=== PATIENT | male | born 1960 | race Caucasian/White ===

== ENCOUNTER 2022-08-10 13:59 | Emergency (ER) | payer OTHER, SELFPAY ==
[2022-08-10 14:10] VITALS: BP 152/79; PULSE 73; RESP 16; TEMP 37.3; O2SAT 96
--- NOTE | 2022-08-10 14:21 | ED.HEATRA ---
HPI - Head Injury General Chief complaint: Head Injury Stated complaint: Fall Injury Time Seen by Provider: 08/10/22 14:15 Source: patient Mode of arrival: ambulatory Limitations: no limitations History of Present Illness HPI Narrative: Mr. Ny is a 62-year-old male patient presenting to the clinic today with complaints of a head injury. He reports that he became dizzy when getting up too quickly and fell and hit his head on the carpet. He has a large goose egg with a laceration to the right side of his head. He denies any loss of consciousness or any neck pain. He reports this happened approximately an hour and a half ago. He denies any use of blood thinners. He denies any other injury that occurred during the fall. Reports he has a slight headache rating it a 1 out of 10 currently. History of neuropathy and thinks this is causing his dizziness as he is unable to feel his lower extremities. Related Data Home Medications Medication Instructions Recorded Confirmed pantoprazole 40 mg tablet,delayed 40 mg PO DAILY 08/10/22 08/10/22 release Allergies Allergy/AdvReac Type Severity Reaction Status Date / Time latex Allergy Unknown Rash Verified 08/10/22 14:04 Penicillins Allergy Unknown Rash Verified 08/10/22 14:04 Review of Systems Review of Systems: Pertinent positives per HPI. Patient denies any fever, chills, rash, visual changes, dizziness, cough, runny nose, sore throat, shortness of breath, chest pain, palpitations, nausea, vomiting, diarrhea, constipation, abdominal pain, or any urinary issues. [facility] Past Medical History Medical History Anemia Bilateral lower extremity edema Diabetic peripheral neuropathy associated with type 2 diabetes mellitus Essential (primary) hypertension GERD (gastroesophageal reflux disease) History of colon cancer Hypercholesterolemia Neuropathy Obesity Surgical History Surgical History History of ankle surgery left ankle 2015 Family History Family History Sibling Patient's sister is in good health Father Diabetes mellitus Mother Carcinoma of colon Hypertension Social History Social History Smoking status: Never smoker Alcohol intake: current Alcohol use details: socially Comments At the time of my signature, I reviewed and agree with the nursing past medical, surgical, social, and family history. There is no relevant family history pertinent to the patient complaint. Exam Narrative: General: Well-developed, obese, in no apparent distress Head: Normocephalic, large hematoma to the right forehead with centimeter laceration-bleeding controlled-tender to palpation over this area Eyes: Pupils equally round and reactive to light bilaterally, EOM intact, sclera and conjunctive clear, no discharge, lids normal Ears: TMs intact and clear, ear canals clear, no drainage, grossly hearing normal. Nose: Nares patent, no discharge, no inflammation, no sinus tenderness. Mouth: Oropharynx without lesions or masses, good dentition, MMM. Tongue midline, even rise and fall of uvula Neck: Supple, trachea midline, no enlargement of anterior or posterior cervical nodes, no thyroid masses or goiter palpable. Cardio: Regular rate and rhythm, s1 and s2 normal, no murmur appreciated. Resp: Clear to auscultation bilaterally anteriorly and posteriorly, no rhonchi, rales, wheezing or rubs Musculoskeletal: No deformity, non-tender to palpation, grossly normal range of motion, muscle strength strong and equal, peripheral pulse strong, no edema, no cyanosis, normal gait and station Neuro: Alert and oriented x4 with normal speech, no focal deficits, cranial nerves I through XII intact, muscle strength 5 out of 5-no drifting, sensatio
--- NOTE | 2022-08-10 14:25 | ECG_ITS ---
Measurements Intervals Odell Rate: 65 P: VA: 0 QRS: 37 QRSD: 84 T: 25 QT: 432 QTc: 450 Interpretive Statements SINUS RHYTHM DELAYED PRECORDIAL R/S TRANSITION BORDERLINE T WAVE ABNORMALITY- ANT/INF LEADS BASELINE ARTIFACT- II, III, AVF, V4-V6 BORDERLINE ECG NO PREVIOUS ECG AVAILABLE FOR COMPARISON Electronically Signed On 08-11-2022 16:49:12 CDT by Garrison Gillette D.O.
[2022-08-10 14:30] VITALS: BP 158/73; PULSE 75
[2022-08-10 14:33] VITALS: BP 146/72; PULSE 72
[2022-08-10 14:35] LABS: Glucose Point of Care 141 mg/dl (65-105)
[2022-08-10 14:36] VITALS: BP 144/65; PULSE 82
[2022-08-10] MEDS: LIDO 1%/EPINEPHRINE 1:100,000 20 ML VIAL 10 ML INFILTRATE (14:41)
== END 2022-08-10 15:09 | disposition home or self-care (01) ==
PROVIDERS: Emergency Provider Nurse Practitioner Family; PCP Internal Medicine
DX: S09.90XA Unspecified injury of head, initial encounter (principal); W19.XXXA Unspecified fall, initial encounter; S01.81XA Laceration without foreign body of other part of head, initial encounter; E11.42 Type 2 diabetes mellitus with diabetic polyneuropathy; I10 Essential (primary) hypertension; K21.9 Gastro-esophageal reflux disease without esophagitis; E78.00 Pure hypercholesterolemia, unspecified; E66.9 Obesity, unspecified; Z68.37 Body mass index [BMI] 37.0-37.9, adult
CPT/HCPCS: 12011; 82948; 93005; 99213; G0463

== ENCOUNTER 2022-08-19 08:05 | Emergency (ER) | payer OTHER, SELFPAY ==
--- NOTE | 2022-08-19 08:08 | ED.WOUNDLAC ---
HPI - Wound/Laceration General Stated Complaint: Stitches Removal Time Seen by Provider: 08/19/22 08:08 Source: patient Mode of arrival: ambulatory Limitations: no limitations History of Present Illness HPI narrative: Mr. Ny is a 62-year-old male patient presenting to the clinic today here for suture removal. He reports he was seen 1 week ago and received sutures to the right side of his forehead after a fall. He denies any pain or discomfort at this time. He denies any other concerns. Related Data Home Medications Medication Instructions Recorded Confirmed pantoprazole 40 mg tablet,delayed 40 mg PO DAILY 08/10/22 08/10/22 release Allergies Allergy/AdvReac Type Severity Reaction Status Date / Time latex Allergy Unknown Rash Verified 08/10/22 14:04 Penicillins Allergy Unknown Rash Verified 08/10/22 14:04 Review of Systems Review of Systems: Pertinent positives per HPI. Patient denies any fever, chills, rash, headache, visual changes, dizziness, cough, runny nose, sore throat, shortness of breath, chest pain, palpitations, nausea, vomiting, diarrhea, constipation, abdominal pain, or any urinary issues. PMFSH Past Medical History Medical History Anemia Bilateral lower extremity edema Diabetic peripheral neuropathy associated with type 2 diabetes mellitus Essential (primary) hypertension GERD (gastroesophageal reflux disease) History of colon cancer Hypercholesterolemia Neuropathy Obesity Surgical History Surgical History History of ankle surgery left ankle 2016 Family History Family History Sibling Patient's sister is in good health Father Diabetes mellitus Mother Carcinoma of colon Hypertension Social History Social History Smoking status: Never smoker Alcohol intake: current Alcohol use details: socially Comments At the time of my signature, I reviewed and agree with the nursing past medical, surgical, social, and family history. There is no relevant family history pertinent to the patient complaint. Exam Narrative: General: Well-developed, well nourished, in no apparent distress Head: Normocephalic, old ecchymosis to the right forehead and around the right eye Cardio: Regular rate and rhythm, s1 and s2 normal, no murmur appreciated. Resp: Clear to auscultation bilaterally, no rhonchi, rales, wheezing or rubs. Integumentary: Moodus, warm, and dry, intact without lesion, no rashes. 5 interrupted sutures removed from well healed laceration to the right forehead. No redness or drainage noted. Course Course Emergency Course: Portions of this record may have been created with voice recognition software. Level of Care: Express Care Visit Vital Signs Vital signs: Vital signs reviewed MDM - Wound/Laceration MDM Narrative Medical decision making narrative: At the time of visit patient is resting comfortably on the exam table. 5 interrupted sutures were removed from well-healed laceration to the right side of his forehead. Triple antibiotic ointment was applied over the healing wound. Supportive measures were discussed with the patient he voiced understanding of discharge instructions. Differential Diagnosis Differential diagnosis: Likely other (Well-healed laceration) Discharge Plan Discharge Clinical Impression: Encounter for removal of sutures Patient Disposition: Home, Self-Care Condition: Stable Instructions: Antibiotic Form, Stitches Removal (ED) Additional Instructions: Sutures removed in the clinic today. May use OTC Mederma as directed for scarring Follow-up with your PCP as needed Prescriptions: No Action pantoprazole 40 mg tablet,delayed release (DR/EC) 40 mg PO DAILY dulaglutide 3 mg/0
[2022-08-19 08:14] VITALS: BP 171/70; PULSE 72; RESP 16; TEMP 37.2; O2SAT 98
== END 2022-08-19 08:24 | disposition home or self-care (01) ==
PROVIDERS: Emergency Provider Nurse Practitioner Family; PCP Internal Medicine
DX: S01.81XD Laceration without foreign body of other part of head, subsequent encounter (principal); X58.XXXD Exposure to other specified factors, subsequent encounter; E11.42 Type 2 diabetes mellitus with diabetic polyneuropathy; I10 Essential (primary) hypertension; K21.9 Gastro-esophageal reflux disease without esophagitis; E78.00 Pure hypercholesterolemia, unspecified; E66.9 Obesity, unspecified; Z68.36 Body mass index [BMI] 36.0-36.9, adult
CPT/HCPCS: 99211; G0463

== ENCOUNTER 2022-12-03 08:21 | Emergency (ER) | payer OTHER, SELFPAY ==
[2022-12-03 08:26] VITALS: BP 165/59; PULSE 75; RESP 20; TEMP 35.7; O2SAT 97
--- NOTE | 2022-12-03 08:35 | ED.BACK ---
HPI - Back Pain/Injury General Chief Complaint: Back Pain/Injury Stated Complaint: hip/lower back pain Time Seen by Provider: 12/03/22 08:35 Source: patient Mode of arrival: ambulatory Limitations: no limitations History of Present Illness HPI Narrative: 62-year-old male presented for complaint of right lower back pain intermittently for 1 month. He states the pain radiates from the low back to the right knee. He denies injury. He has taken occasional ibuprofen for symptoms. He endorses after about 2 weeks of the pain, he changes sleeping position and the pain improved, but it did return. He denies numbness, tingling, weakness of the lower extremities, denies loss of bowel or bladder or saddle paresthesia. Reports a chronic mobility issues, unchanged. Endorses similar experience a few years ago, states he was given meloxicam and possibly a muscle relaxer with improvement in symptoms. He is scheduled with his PCP at the end of month. Related Data Home Medications Medication Instructions Recorded Confirmed pantoprazole 40 mg tablet,delayed 40 mg PO DAILY 08/10/22 12/03/22 release Allergies Allergy/AdvReac Type Severity Reaction Status Date / Time latex Allergy Unknown Rash Verified 08/19/22 09:34 Penicillins Allergy Unknown Rash Verified 08/19/22 09:34 Review of Systems Review of Systems: CONSTITUTIONAL: Denies body aches, fever, chills EYES: Denies visual changes CARDIOVASCULAR: Denies chest pain, palpitations, or edema. RESPIRATORY: Denies cough or dyspnea. GASTROINTESTINAL: Denies abdominal pain, nausea, vomiting, or diarrhea. SKIN: Denies rash, itching, or wounds. MUSCULOSKELETAL: reports back pain NEUROLOGIC: Denies headache, numbness, tingling, or weakness. All systems reviewed & are unremarkable except as noted in HPI and below PMFSH Past Medical History Medical History Anemia Bilateral lower extremity edema Diabetic peripheral neuropathy associated with type 2 diabetes mellitus Essential (primary) hypertension GERD (gastroesophageal reflux disease) History of colon cancer Hypercholesterolemia Neuropathy Obesity Surgical History Surgical History History of ankle surgery left ankle 2016 Family History Family History Sibling Patient's sister is in good health Father Diabetes mellitus Mother Carcinoma of colon Hypertension Social History Social History Smoking status: Never smoker Alcohol intake: current Alcohol use details: socially Comments At time of signature, I have reviewed and agree with nursing past medical, surgical, social and family history unless otherwise noted. Please see nursing chart for further information. There is no relevant family history pertinent to the presenting complaint Exam Narrative: GENERAL: Well-appearing, and in no acute distress. HEAD: Normocephalic, atraumatic. EYES: conjunctivae clear NECK: Supple. full ROM CHEST: Speaks in full sentences. No respiratory distress. HEART: Regular rate and rhythm. Normal and equal peripheral pulses. MUSC: No Vertebral point or paraspinal tenderness. Right low back/upper iliac tenderness with palpation. No SI joint ttp. BLEs with normal strength and sensation, normal range of motion. No lesions or ecchymosis, No open wounds or obvious deformity; alignment normal, pulse palpable and equal bilaterally, skin warm, dry, pink. Capillary refill less than 3 seconds. Gait steady, reports chronic mobility issue. SKIN: Warm, dry, no rash. NEURO: Alert and oriented x3. Course Course Emergency Course: Patient is aware of diagnosis, understands and agrees to treatment plan. Anticipatory guidance given. Patient agrees to follow-up as directed and is aware of reasons to seek [facility]
== END 2022-12-03 08:54 | disposition home or self-care (01) ==
PROVIDERS: Emergency Provider Nurse Practitioner Family; PCP Internal Medicine
DX: M54.50 Low back pain, unspecified (principal); I10 Essential (primary) hypertension; K21.9 Gastro-esophageal reflux disease without esophagitis; E78.00 Pure hypercholesterolemia, unspecified; E11.42 Type 2 diabetes mellitus with diabetic polyneuropathy; E66.9 Obesity, unspecified; Z68.36 Body mass index [BMI] 36.0-36.9, adult
CPT/HCPCS: 99213; G0463

== ENCOUNTER → 2022-12-29 14:24 | Outpatient (CLI) | payer OTHER, SELFPAY ==
--- NOTE | ~2022-12-29 | XR_ITS ---
EXAMINATION: XR hip BI wo pelvis INDICATION: Bilateral hip pain TECHNIQUE: Two views of each hip are obtained. COMPARISON: None available FINDINGS: Bone alignment is normal. There is no fracture. There is mild osteoarthritis of the hips. C alcified atherosclerosis is noted. IMPRESSION: 1. No acute osseous abnormality. Reviewed, dictated and finalized at location B. RY WORKER
== END ==
PROVIDERS: PCP Internal Medicine; Visit Provider Nurse Practitioner
DX: M25.551 Pain in right hip (principal); M25.552 Pain in left hip
CPT/HCPCS: 73521

== ENCOUNTER → 2023-07-21 14:42 | Outpatient (CLI) | payer OTHER, SELFPAY ==
--- NOTE | ~2023-07-21 | XR_ITS ---
EXAM: XR lumbar spine min 4V DATE: 07/21/2023 15:22 HISTORY: Low back pain . COMPARISON: CT abdomen pelvis 06/04/2012. FINDINGS: 5 nonrib-bearing lumbar-type vertebral bodies. Mild lumbar scoliosis. Pedicles intact. Nor mal vertebral body alignment. Chronic and stable multilevel mild anterior wedge deformity at the thor acolumbar junction. Moderate disc space narrowing and marginal osteophytosis at L1-2 and L3-4. Mild d egenerative change at L4-5. Severe disc space narrowing at L5-S1. Multilevel lower lumbar facet hyper trophy and sclerosis. Aortic calcification without evident aneurysm. No fracture or dislocation. Poss ible G-tube anchors over the midline abdomen. IMPRESSION: Multilevel degenerative disc disease, severe at L5-S1. Mild lower lumbar facet arthropath y. Reviewed, dictated and finalized at location K. IMPRESSION: Multilevel degenerative disc disease, severe at L5-S1. Mild lower l umbar facet arthropathy.
== END ==
PROVIDERS: PCP Chiropractor; Visit Provider Chiropractor
DX: M54.50 Low back pain, unspecified (principal); M51.36 Other intervertebral disc degeneration, lumbar region; M12.88 Other specific arthropathies, not elsewhere classified, other specified site
CPT/HCPCS: 72110

== ENCOUNTER → 2023-08-11 09:28 | Outpatient (CLI) | payer OTHER, SELFPAY ==
--- NOTE | ~2023-08-11 | MR_ITS ---
MRI of the lumbar spine Clinical History: Back pain Technique: Axial T2-weighted images, and sagittal T1-weighted, T2-weighted, and T2 fat-sat images wer e acquired. Findings: There is no fracture or subluxation of lumbar spine. Vertebral bodies maintain normal heigh t and alignment. No suspicious bone marrow signal abnormality seen. At L1-L2, there is mild degenerative disc narrowing. There is minimal disc bulge and mild facet arthr opathy. No central canal stenosis. There is moderate to advanced right neural foraminal narrowing, an d moderate left neural foraminal narrowing. At L2-L3, there is mild degenerative disc narrowing. There is disc bulge with mild facet arthropathy. No central canal stenosis. There is mild left neural foraminal narrowing. Right neural foramen prese rved. At L3-L4, there is advanced degenerative disc narrowing. There is disc bulge with superimposed centra l disc herniation extending superiorly, behind the L3 vertebral body. There is mild facet arthropathy . These factors contribute to severe spinal canal stenosis/thecal sac compression at this level. Ther e is moderate to severe left neural foraminal narrowing, and severe right neural foraminal narrowing. At L4-L5, there is mild disc bulge and moderate facet arthropathy. No central canal stenosis. There i s mild right neural foraminal narrowing. Left neural foramen preserved. At L5-S1, there is moderate degenerative disc narrowing with diffuse disc bulge. There is mild facet arthropathy. No central canal stenosis. There is severe right neural foraminal narrowing and minimal left neural foraminal narrowing. Paravertebral soft tissues are unremarkable. Impression: Central disc herniation at L3-L4 extending superiorly behind the L3 vertebral body, which in conjunct ion with other degenerative factors, results in severe spinal canal stenosis/thecal sac compression, and severe bilateral neural foraminal narrowing, at this level. Additional mild degenerative changes areas of neural foraminal narrowing, as detailed above. Reviewed, dictated and finalized at location M. Impression: Central disc herniation at L3-L4 extending superiorly behind the L3 vertebral b misty, which in conjunction with other degenerative factors, results in severe sp inal canal stenosis/thecal sac compression, and severe bilateral neural foramin al narrowing, at this level. Additional mild degenerative changes areas of neural foraminal narrowing, as d etailed above.
== END ==
PROVIDERS: PCP Internal Medicine; Visit Provider Chiropractor
DX: M48.061 Spinal stenosis, lumbar region without neurogenic claudication (principal); M51.26 Other intervertebral disc displacement, lumbar region
CPT/HCPCS: 72148

== ENCOUNTER → 2024-01-19 12:28 | Outpatient (CLI) | payer OTHER, SELFPAY ==
--- NOTE | ~2024-01-19 | MR_ITS ---
EXAMINATION: MR cervical spine wo con DATE: 01/19/2024 13:31 INDICATION: Myelopathy. TECHNIQUE: Magnetic resonance imaging (MRI) of the cervical spine was performed without intravenous c ontrast. Sequences included sagittal T2-weighted FSE, sagittal T2-weighted FS FSE, sagittal T1-weight ed FSE, axial MERGE, and axial T2-weighted FSE. COMPARISON: Cervical spine CT 08/05/2019 FINDINGS: There is 9 degrees levocurvature of cervicothoracic spine. There is 2 mm anterolisthesis of C4 on C5. Vertebral body heights are normal. There is severely decreased disc height at C5-C6, mildl y decreased disc height at C6-C7, and severely decreased disc height at C7-T1. The spinal cord signal intensity is normal. The following disc levels are specifically discussed: C2-C3: There is a central protrusion. There is severe right and mild left uncovertebral joint osteoar thritis. There is severe bilateral facet joint osteoarthritis. There is mild bilateral neural foramin al stenosis. There is no central canal stenosis. C3-C4: There is a central extrusion. There is moderate bilateral uncovertebral joint osteoarthritis. There is severe bilateral facet joint osteoarthritis. There is mild bilateral neural foraminal stenos is. There is mild central canal stenosis. C4-C5: The disc does not extend beyond the endplate margin. There is severe bilateral uncovertebral j oint osteoarthritis. There is severe bilateral facet joint osteoarthritis. There is moderate right an d mild left neural foraminal stenosis. There is no central canal stenosis. C5-C6: The disc is bulging. There is severe bilateral uncovertebral joint osteoarthritis. There is mo derate right and severe left facet joint osteoarthritis. There is moderate right and severe left neur al foraminal stenosis. There is mild central canal stenosis. C6-C7: The disc is bulging. There is severe bilateral uncovertebral joint osteoarthritis. There is mo derate right and severe left facet joint osteoarthritis. There is moderate right and mild left neural foraminal stenosis. There is mild central canal stenosis. C7-T1: The disc is bulging. There is severe right and mild left uncovertebral joint osteoarthritis. T here is moderate right and severe left facet joint osteoarthritis. There is mild bilateral neural for aminal stenosis. There is mild central canal stenosis. IMPRESSION: 1. Severe cervical spondylosis. Reviewed, dictated and finalized at location A. LER
--- NOTE | ~2024-01-19 | MR_ITS ---
EXAMINATION: MR thoracic spine wo con DATE: 01/19/2024 13:31 INDICATION: Myelopathy. TECHNIQUE: Magnetic resonance imaging (MRI) of the thoracic spine was performed without intravenous c ontrast. COMPARISON: None FINDINGS: There is 6 degrees levocurvature of upper thoracic spine and 6 degrees dextrocurvature of m id thoracic spine. There is mild chronic anterior wedging of T12 and L1 vertebral bodies. There is mi ldly decreased disc height at multiple thoracic levels. There is moderately decreased disc height at T7-T8, T9-T10, and T10-T11. There are central extrusions or bulging disks at most thoracic levels wi th mild central canal stenosis at most levels. At T6-T7, there is a central extrusion with mild centr al canal stenosis and ventral indentation of the spinal cord. There is multilevel mild to moderate fa cet joint osteoarthritis in thoracic spine. There is multilevel mild neural foraminal stenosis. On th e right, there is moderate neural foraminal stenosis at T3-T4. The spinal cord signal intensity is no rmal. The conus medullaris is at L1. IMPRESSION: 1. Moderate thoracic spondylosis. Reviewed, dictated and finalized at location A. L CLEANER HAND
== END ==
DX: M43.04 Spondylolysis, thoracic region (principal); M43.02 Spondylolysis, cervical region
CPT/HCPCS: 72141; 72146

== ENCOUNTER 2024-04-11 08:29 | Outpatient (CLI) | payer MEDICARE, SELFPAY ==
--- NOTE | 2024-04-11 11:00 | NEURO_ITS ---
History: Patient has complaints of pain in the lower back and weakness in both lower limbs. There is history of diabetes mellitus and chronic alcoholism. It was noted that he has weakness of dorsiflexion and plantar flexion of her ankles on both sides. Please refer to neurology Office note for further details. Summary of findings: 1. Left and right sural sensory were absent 2. Left and right tibial motor responses were absent over abductor hallucis 3. Left and right peroneal motor were absent over extensor digitorum brevis however response was recorded over tibialis anterior which shows conduction velocity was mildly decreased 4. Bilateral H reflexes were absent 5. EMG examination was performed of the paraspinal and peripheral muscles. Denervation changes were seen in peripheral muscles as a well as significant loss of recruitment however paraspinal and proximal muscles also showed denervation changes in bilateral L5 distribution. Impression: 1. Evidence of profoundly severe length-dependent, axonal, sensory motor polyneuropathy such as may be seen with diabetes mellitus and alcoholism 2. Evidence of moderate chronic bilateral L5 (S1) radiculopathy. Clinical and radiographic correlation are recommended Golden Kramer MD, FAAN Neurologist Nerve Conduction Studies Anti Sensory Summary Table Stim Site NR Onset (ms) Peak (ms) P-T Amp (?V) Site1 Site2 Delta-0 (ms) Dist (mm) Jayesh (m/s) Left Sural Anti Sensory (Lat Mall) NO RESPONSE Calf NR Calf Lat Mall 120 Right Sural Anti Sensory (Lat Mall) NO RESPONSE Calf NR Calf Lat Mall 120 Motor Summary Table Stim Site NR Onset (ms) O-P Amp (mV) Site1 Site2 Delta-0 (ms) Dist (mm) Jayesh (m/s) Left Fibular TA Motor (Tib Ant) Fib Head 3.0 1.5 Poplit Fib Head 2.1 80 38 Poplit 5.1 1.7 Right Fibular TA Motor (Tib Ant) Fib Head 3.6 1.6 Poplit Fib Head 2.3 80 35 Poplit 5.9 1.4 Left Peroneal Motor (Ext Dig Brev) NO RESPONSE Ankle NR Ankle Ankle 0 Popit NR Right Peroneal Motor (Ext Dig Brev) NO RESPONSE Ankle NR Ankle Ankle 80 B Fib NR Ankle B Fib 390 Popit NR Left Tibial Motor (Abd Miller Brev) NO RESPONSE Ankle NR Ankle Ankle 80 Knee NR Ankle Knee 0 Right Tibial Motor (Abd Miller Brev) NO RESPONSE Ankle NR Ankle Ankle 90 Knee NR Ankle Knee 430 H Reflex Studies NR H-Lat (ms) Max H-Amp (mV) L-R H-Lat (ms) L-R H-Lat Norm M-Lat (ms) M-Amp (mV) H-M Lat (ms) H/M Ratio H/M Ratio Norm Right Tibial (Curs) (Gastroc) NO RESPONSE NR <2.0 <70 Left Tibial (Mrkrs) (Gastroc) NO RESPONSE NR <2.0 EMG Side Muscle Nerve Ins Act Fibs Psw Amp Dur Recrt Comment Right AntTibialis Dp Br Fibular Nml Nml 1+ Incr >12ms +3 Right Gastroc Tibial Nml Nml Nml Nml Nml None Right BicepsFemS Sciatic Nml Nml Nml Incr >12ms +2 Right Semimembranosus Sciatic Nml Nml Nml Incr >12ms +2 Right GluteusMax InfGluteal Nml Nml Nml Nml Nml Nml Left AntTibialis Dp Br Fibular Nml 2+ Nml Nml Nml +3 Left Gastroc Tibial Nml Nml Nml Incr >12ms +3 Left BicepsFemS Sciatic Nml Nml Nml Incr >12ms +2 Left Semimembranosus Sciatic Nml Nml Nml Nml Nml Nml Left GluteusMax InfGluteal Nml Nml Nml Nml Nml Nml Left TensorFascLat SupGluteal Nml Nml Nml Incr >12ms +1 Right TensorFascLat SupGluteal Nml Nml 2+ Nml >12ms +1 Left L4 Parasp Rami Nml Nml 1+ Right L4 Parasp Rami Nml Nml 2+ CRD Left L3 Parasp Ra
== END 2024-04-11 08:30 | disposition home or self-care (01) ==
PROVIDERS: PCP Internal Medicine; Visit Provider Psychiatry & Neurology Neurology
DX: G62.89 Other specified polyneuropathies (principal); M54.17 Radiculopathy, lumbosacral region; E11.42 Type 2 diabetes mellitus with diabetic polyneuropathy; M48.061 Spinal stenosis, lumbar region without neurogenic claudication; R26.0 Ataxic gait; R26.89 Other abnormalities of gait and mobility
CPT/HCPCS: 95886; 95910

== ENCOUNTER 2024-04-15 08:46 | Outpatient (CLI) | payer MEDICARE, SELFPAY ==
--- NOTE | ~2024-04-15 | MR_ITS ---
MRI of the brain Clinical History: Gait abnormality Technique: Axial and sagittal T1-weighted images were acquired. These were followed by axial T2-weigh arabella, diffusion weighted, gradient, and FLAIR images. Following intravenous administration of 20 cc Mu ltiHance gadolinium, T1-weighted fat-sat imaging was performed in the axial and coronal planes. Findings: There is no acute infarct, intracranial hemorrhage, or mass lesion. There are mild chronic white matter changes in the periventricular white matter bilaterally. Ventricles and subarachnoid spaces are dilated. Orbits are unremarkable. Paranasal sinuses and mastoi d air cells are clear. Major intracranial flow voids are intact. Sagittal midline structures are intact. No abnormal postcontrast enhancement identified. IMPRESSION: No acute infarct, intracranial hemorrhage, or mass lesion. Mild chronic microvascular ischemic changes, and mild to moderate generalized atrophy. Reviewed, dictated and finalized at [facility]. IMPRESSION: No acute infarct, intracranial hemorrhage, or mass lesion. Mild chronic microvascular ischemic changes, and mild to moderate generalized a trophy.
== END 2024-04-15 08:47 | disposition home or self-care (01) ==
PROVIDERS: PCP Internal Medicine; Visit Provider Clinical Nurse Specialist
DX: R26.89 Other abnormalities of gait and mobility (principal); I67.82 Cerebral ischemia; G31.9 Degenerative disease of nervous system, unspecified
CPT/HCPCS: 70553; A9577